=== PATIENT | female | born 1995 ===

== ENCOUNTER 2023-07-15 11:42 | Outpatient (CLI) | payer OTHER | END 2023-07-15 11:46 | disposition home or self-care (01) | LOC: RAD 11:42 | DX: M54.50 Low back pain, unspecified (principal); M25.541 Pain in joints of right hand; M25.542 Pain in joints of left hand; M25.559 Pain in unspecified hip ==

== ENCOUNTER 2023-12-01 09:50 | Outpatient (CLI) | payer OTHER | END 2023-12-01 09:54 | disposition home or self-care (01) | LOC: MRI 09:50 | PROVIDERS: ATTEND Anesthesiology | DX: G89.4 Chronic pain syndrome (principal); M47.814 Spondylosis without myelopathy or radiculopathy, thoracic region; M51.36 Other intervertebral disc degeneration, lumbar region; M54.6 Pain in thoracic spine; M41.20 Other idiopathic scoliosis, site unspecified | CPT/HCPCS: 72146; 72148 ==